=== PATIENT | female | born 1965 | race Caucasian/White ===

== ENCOUNTER 2024-03-11 11:57 | Emergency (ER) | payer MEDICARE, SELFPAY ==
[2024-03-11] VITALS (8 sets, daily range): BP systolic 138; BP diastolic 90; PULSE 107–121; RESP 24; TEMP 37.4; O2SAT 90–96; BMI 46.9
--- NOTE | 2024-03-11 12:33 | ED_ITS ---
HPI - General Adult General Chief complaint: Shortness of Breath/Dyspnea Stated complaint: COPD/cough/fever Time Seen by Provider: 03/11/24 12:05 History of Present Illness HPI narrative: Patient reports SOB, cough and fever for three. Was seen in [facility] a couple of days ago and was started on 4 day course of prenisone which she finished today. Despite using prescribed Trilogy, rescue inhalers and nebulizer she reports coughing spells as becoming worse. Audile wheezing in triage, last took albuterol inhaler as she came in to ED 58-year-old woman presenting to the emergency department with concern of increasing shortness of breath and cough. Has been having symptoms probably for 10 days or so. Was seen 4 days ago in clinic initiated on 40 mg daily of prednisone. She does endorse a history of environmental and seasonal allergies and regularly uses fluticasone along with couple of allergy pills which does include montelukast. She has been using DuoNebs and albuterol nebs as prescribed regularly recently. She does not have home O2 and does use trilogy with a diagnosis of COPD. Cough might be more when she is lying down. She reports having had a fever. She arrives with mildly elevated temperature 99.3?. Oxygenating 93% on room air. She is also tachycardic at 121. She does have a history of supraventricular tachycardia and sounds like received an ablation. Denies a history of heart failure. Will have fits of coughing causing chest pain she gestures to the mid sternum in the epigastric area. Actually has to get up and stretch as she feels spasms setting in across her upper abdomen. 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 Noted to be quite tremulous on arrival which she would attribute to prednisone and albuterol. Understandably chest x- ray was not done for her at her appointment 4 days ago and she reports being triple swabbed and negative at that time. Related Data Home Medications Medication Instructions Recorded Confirmed albuterol sulfate 90 mcg/actuation 1 inh inhalation Q4-6H PRN 03/11/24 03/11/24 aerosol inhaler fluticasone fur. 100 mcg-umeclid 1 inh inhalation DAILY 03/11/24 03/11/24 62.5 mcg-vilant 25 mcg inhalat.powder (Trelegy Ellipta) Previous Rx's Medication Instructions Recorded benzonatate 200 mg capsule 100 - 200 mg (0.5 - 1 x 200 mg) PO 03/11/24 TID cough/throat tickle #30 caps cyclobenzaprine 10 mg tablet 10 mg PO TID PRN muscle 03/11/24 spasm/spasm #21 tabs ipratropium 0.5 mg-albuterol 3 mg 3 ml inhalation QID PRN #90 mL 03/11/24 (2.5 mg base)/3 mL nebulization soln Allergies Allergy/AdvReac Type Severity Reaction Status Date / Time No Known Drug Allergies Allergy Verified 03/11/24 12:21 Review of Systems Status of ROS: Reports: 6 or more systems reviewed and unremarkable except as noted in History and below [facility] Social History Smoking Status: Former smoker How often do you have a drink containing alcohol: never AUDIT-C Alcohol total score: 0 Non-prescribed substance use: marijuana (any form) Exam Narrative: Exam Narrative: Very pleasant. Generally tremulous. Somewhat laryngitic --- (which she says is been going on for quite some time. No reported difficulty swallowing) no stridor. Mildly tachypneic and mildly labored in breathing. Good air movement throughout but with trace end-expiratory wheeze in particular diffusely. Abdomen is overweight soft and nontender. Heart is tachycardic in a regular rhythm. Extremities are well perfused without edema. Oropharynx is moist with trace erythema in the posterior aspect. Const: Vital Signs, click to edit/add: Vital Signs - 24 hr 03/11/24 12:17 03/11/24 12:36 03/11/24 12:45 Temperature 99.3 F Pulse Rate 107 H 114 H Pulse Rate [Pulse Oximeter] 121 H Respiratory Rate 24 Blood Pressure [Ri ght Upper Arm] 138/90 H Pulse Oximetry 93 92 96 Oxygen Delivery Me thod Room Air 03/11/24 13:00 03/11/24 13:15 03/11/24 13:30 Temperature Pulse Rate 114 H 108 H 111 H Pulse Rate [Pulse Oximeter] Respiratory Rate Blood Pressure [Ri ght Upper Arm] Pulse Oximetry 95 95 94 Oxygen Delivery Me thod 03/11/24 13:45 03/11/24 14:00 Temperature Pulse Rate 108 H 118 H Pulse Rate [Pulse Oximeter] Respiratory Rate Blood Pressure [Ri ght Upper Arm] Pulse Oximetry 90 95 Oxygen Delivery Me thod Documenting provider has reviewed patient's vital signs: yes Course Vital Signs Vital signs: Initial Vital Signs Temperature 99.3 F 03/11/24 12:17 Temperature Source Temporal Artery Scan 03/11/24 12:17 Pulse Rate 121 H 03/11/24 12:17 Respiratory Rate 24 03/11/24 12:17 Blood Pressure 138/90 H 03/11/24 12:17 Blood Pressure Mean 106 H 03/11/24 12:17 Pulse Oximetry 93 03/11/24 12:17 Oxygen Delivery Method Room Air 03/11/24 12:17 Vital Signs Temperature 99.3 F 03/11/24 12:17 Pulse Rate 121 H 03/11/24 12:17 Respiratory Rate 24 03/11/24 12:17 Blood Pressure 138/90 H 03/11/24 12:17 Pulse Oximetry 93 03/11/24 12:17 Oxygen Delivery Method Room Air 03/11/24 12:17 Temperature 99.3 F 03/11/24 12:17 Pulse Rate 118 H 03/11/24 14:00 Respiratory Rate 24 03/11/24 12:17 Blood Pressure 138/90 H 03/11/24 12:17 Pulse Oximetry 95 03/11/24 14:00 Oxygen Delivery Method Room Air 03/11/24 12:17 Medications Administered Medications: Discontinued Medications Generic Name Dose Route Start Last Admin Trade Name Freq PRN Reason Stop Dose Admin Albuterol/Ipratropium 1 neb 03/11/24 12:46 03/11/24 13:05 Iprat-Albut 0.5-2.5 Mg/3 Ml Neb IH 03/11/24 12:47 1 neb ONCE ONE Administration Medical Decision Making MDM Narrative Medical decision making narrative: Appears to be having COPD exacerbation. Will evaluate further though for pneumonia and monitor for oxygen needs. Need to make sure that she is not in supraventricular tachycardia again though tachycardia is probably albuterol effect. Did discuss more her symptoms. It sounds as though particularly troubling are jags of coughing. Admittedly she said would probably not have come in otherwise. Did give some ice chips which I think were helpful here in the ER if in this regard. Combination of factors with head cold, postnasal drip, COPD exacerbation Chest x-ray by my read is without infiltrate. No pneumothorax. Mild hyperinflation? Monitored during time in the emergency department with stable vitals. Did receive a DuoNeb with maybe a little improvement in symptoms. Oxygenation improved to mid 90s. See patient discharge plan for further discussion ECG Data Attestation: I personally reviewed and interpreted this ECG as follows: (Sinus tachycardia 118) Discharge Plan Discharge Clinical Impression: Cough, Tachycardia, COPD exacerbation Patient Disposition: Home, Self-Care Condition: Stable Additional Instructions: Can continue with menthol vapors/cough drops. Might help sleep under the mist of a cool mist humidifier. Sleep with head of bed elevated. Suck on ice chips. Stay well hydrated with water In the short term pseudoephedrine might be helpful for drying and decongestion and so might help with cough though can cause elevated heart rate. With that in mind though, you report being chronically tachycardic. I think this requires some follow-up. You do have a relationship with Cardiology from way back. I am not sure if you could schedule a follow-up appoint with them or need to go through your primary. Since we do not have benzonatate in the [facility], I'm sending in all scripts to your pharmacy Use the DuoNebs regularly-dosed 4 times daily over the next 3 days. Do not exceed more than 9 treatments in 24 hours of nebs or rescue inhalers. Be seen if not improved in 3 days or if clearly worsening, recurrence of fever. Prescriptions: New ipratropium-albuterol 0.5 mg-3 mg(2.5 mg base)/3 mL solution for nebulization 3 ml inhalation QID PRNQty: 90 0RF benzonatate 200 mg capsule 100 - 200 mg PO TID Qty: 30 0RF cyclobenzaprine 10 mg tablet 10 mg PO TID PRN (Reason: muscle spasm/spasm) Qty: 21 0RF No Action Trelegy Ellipta 100-62.5-25 mcg blister with device 1 inh inhalation DAILY albuterol sulfate 90 mcg/actuation HFA aerosol inhaler 1 inh inhalation Q4-6H PRN Follow Up/Referrals: Provider,Not a Local [Primary Care Provider] - Stand Alone Forms: [employer] Info Instructions
--- NOTE | 2024-03-11 12:35 | XR_ITS ---
Patient: MADHAVI SHAIKH Facility:?[facility] Patient ID:?[id number] Site Patient ID:?[id number]. Site :?[id number] Study:?XRay-Chest PCXR-03/11/2024 1:07:46 PM Ordering Physician:CHANO Final Report: Indication: Cough, wheeze, dyspnea Comparison: None available. Technique: Single AP view chest Findings: There is hyperinflation and chronic interstitial change. There is no dense consolidation, effusion or pneumothorax. The cardiac silhouette is mildly prominent with minimal aortic tortuosity. The bony thorax is grossly intact. Impression: Mild nonspecific interstitial prominence without dense consolidation. Dictated by Gregory Grissom MD @ 03/11/2024 1:28:15 PM Signed by:?Gregory Grissom MD @03/11/2024 1:28:15 PM (Electronic Signature)
[2024-03-11] MEDS: IPRAT-ALBUT 0.5-2.5 MG/3 ML NEB 1 NEB IH (13:05)
== END 2024-03-11 14:30 | disposition home or self-care (01) ==
PROVIDERS: Emergency Provider Family Medicine
DX: R00.0 Tachycardia, unspecified (principal); J44.1 Chronic obstructive pulmonary disease with (acute) exacerbation
CPT/HCPCS: 71045; 93005; 94640; 99284; 99285